=== PATIENT | male | born 1970 | race Caucasian/White ===

== ENCOUNTER 2017-10-30 09:36 | Emergency (ER) | payer OTHER ==
[~2017-10-30] VITALS: Ht 180.3 cm; Wt 120.2 kg
--- NOTE | 2017-10-30 09:57 | NUR ---
PT BIB SELF C/O BLOOD IN [place] X2 MONTHS AND NOW REPORTS FEELING LIKE PUS IS COMING OUT OF A NON-HEALING PERIANAL ABSCESS WITH RECENT MRSA INFECTION. ALSO C/O DIFFUSE ABD PAIN. DENIES URINARY COMPLAINTS. RESP EVEN UNLABORED. IN ER BED 14.
[2017-10-30 10:20] LABS: BASOPHILS % (AUTO) 0.6 % (0.0-2.0); EOSINOPHILS % (AUTO) 3.7 % (0.0-6.0); HEMATOCRIT 47 % (39-51); HEMOGLOBIN 15.8 g/dL (13.5-17.5); LYMPHOCYTES # (AUTO) 2.1 /CMM (0.8-4.8); LYMPHOCYTES % (AUTO) 25.9 % (20.0-44.0); MEAN CORPUSCULAR HGB CONC 34 g/dl (31.0-36.0); MEAN CORPUSCULAR VOLUME 89 fL (80-96); MONOCYTES # (AUTO) 0.7 /CMM (0.1-1.30); NEUTROPHILS # (AUTO) 5.2 /CMM (1.8-8.9); NEUTROPHILS % (AUTO) 61.8 % (43.0-81.0); PLATELET COUNT (AUTO) 301 /CMM (150-450); RDW COEFFICIENT OF VARIATION 13.3 (11.5-15.0); RED BLOOD CELL COUNT(AUTO) 5.26 MIL/uL (4.5-6.0); WHITE BLOOD COUNT (AUTO) 8.3 K/uL (4.3-11.0)
[2017-10-30 10:29] LABS: CREATININE 1.1 mg/dL (0.6-1.3); POTASSIUM 4.1 mmol/L (3.5-5.1)
[2017-10-30 10:32] LABS: INR 0.9 (0.85-1.15)
--- NOTE | 2017-10-30 11:45 | NUR ---
Patient discharged to home in stable condition. Written and verbal after care instructions given. Patient verbalizes understanding of instruction. AMBULATORY STEADY GAIT
[2017-10-30 12:07] VITALS: BP 143/86
== END 2017-10-30 12:09 | disposition home or self-care (01) ==
LOC: ER 09:38
DX: R19.7 Diarrhea, unspecified (principal); K92.1 Melena; R10.84 Generalized abdominal pain; I11.0 Hypertensive heart disease with heart failure; I50.9 Heart failure, unspecified; J44.9 Chronic obstructive pulmonary disease, unspecified; K40.90 Unilateral inguinal hernia, without obstruction or gangrene, not specified as recurrent; K61.0 Anal abscess; G89.29 Other chronic pain; L02.215 Cutaneous abscess of perineum; N20.0 Calculus of kidney; F10.10 Alcohol abuse, uncomplicated; F17.200 Nicotine dependence, unspecified, uncomplicated
CPT/HCPCS: 36415; 74176; 80048; 85025; 85730; 99285; A4606; Z7610